=== PATIENT | female | born 1965 | race Caucasian/White ===

== ENCOUNTER 2019-12-25 15:37 | Outpatient (CLI) | payer OTHER, SELFPAY ==
--- NOTE | ~2019-12-25 | MR_ITS ---
EXAMINATION: MR ankle LT wo con DATE: 12/25/2019 16:45 INDICATION: Left-sided fasciitis. Peroneal tendinitis. TECHNIQUE: Magnetic resonance imaging (MRI) of the left ankle was performed without intravenous contr ast. Sequences included sagittal, coronal, and axial proton-density weighted fast spin echo without a nd with fat saturation. COMPARISON: None. FINDINGS: Medial ankle ligaments: Deep and superficial deltoid ligaments as well as the spring ligament are normal. Lateral ankle ligaments: The anterior and posterior inferior tibiofibular ligaments are normal. The anterior talofibular, calc aneofibular and posterior talofibular ligaments are normal. Tendons: Achilles tendon is normal. The peroneus longus and brevis tendons are normal. The tibialis anterior a nd extensor hallucis longus and extensor digitorum longus tendons are normal. The tibialis posterior, flexor digitorum longus and flexor hallucis longus tendons are normal. Plantar fascia: Small plantar calcaneal spur. There is thickening and mild increased signal at the proximal plantar a poneurosis. There is minimal surrounding soft tissue edema. Findings would be consistent with mild ac quileute on chronic plantar fasciitis. Bones/other: Cuboid alis lesion with focal marrow edema at the cuboid along the groove of the peroneus longus te ndon. Marrow signal is otherwise normal. No fracture, osteochondral lesions or pathologic marrow repl acing process. Joint spaces are normal. No cortical erosions. Sinus Tarsi and tarsal tunnel are unrem arkable. Fluid: Physiologic amount fluid in the joint spaces and tendon sheath. No abnormal fluid collections. IMPRESSION: 1. Mild acute on chronic plantar fasciitis. 2. Likely cuboid alis lesion with reactive marrow edema along the groove of the peroneus longus ten don which appears otherwise normal without tendinopathy or tenosynovitis. Reviewed, dictated and finalized at location A. IMPRESSION: 1. Mild acute on chronic plantar fasciitis. 2. Likely cuboid alis lesion with reactive marrow edema along the groove of t he peroneus longus tendon which appears otherwise normal without tendinopathy o r tenosynovitis.
== END 2019-12-25 15:38 | disposition home or self-care (01) ==
PROVIDERS: Visit Provider Podiatrist Foot & Ankle Surgery
DX: M72.2 Plantar fascial fibromatosis (principal)
CPT/HCPCS: 73721

== ENCOUNTER 2023-02-12 12:09 | Emergency (ER) | payer OTHER, SELFPAY ==
[2023-02-12 12:21] VITALS: BP 131/92; PULSE 83; RESP 16; TEMP 36.4; O2SAT 98
--- NOTE | 2023-02-12 12:48 | ED.GENADULT ---
HPI - General Adult General Chief complaint: Skin/Abscess/Foreign Body Stated complaint: Shingles Source: patient Mode of arrival: ambulatory Limitations: no limitations History of Present Illness HPI narrative: Patient presents for evaluation with concern she may have shingles. She was diagnosed with shingles about one month ago and completed valtrex and also received a script for elavil. She did not take many doses of elavil as she could not notice much of a difference in his symptoms on medication. During her recent episode of shingles, she had lesions to her buttock and left upper leg. Approximately 5 days ago she felt what she thought to be a second episode of shingles starting again. Symptoms were slightly above where she had symptoms during her last episode. She states she has started visualizing areas of erythema to her left buttock over last 48 hours. She is leaving town for vacation and wanted to ensure she had appropriate therapy as she would not be close to medical provider while out of town. She states she is immunosuppressed due to history of colon cancer s/p colon resection. Related Data Home Medications Medication Instructions Recorded Confirmed clonazepam 0.5 mg tablet 0.5 mg PO DAILY 02/12/23 02/12/23 sertraline 50 mg tablet 50 mg PO DAILY 02/12/23 02/12/23 Allergies Allergy/AdvReac Type Severity Reaction Status Date / Time No Known Allergies Allergy Mild Verified 02/12/23 12:41 Review of Systems Review of Systems: CONSTITUTIONAL: Denies fever, chills, or sweats. EYES: Denies visual changes, redness, or discharge. ENT: Denies rhinorrhea, congestion, sore throat, or otalgia. CARDIOVASCULAR: Denies chest pain, palpitations, or edema. RESPIRATORY: Denies cough or dyspnea. GASTROINTESTINAL: Denies abdominal pain, nausea, vomiting, or diarrhea. GENITOURINARY: Denies dysuria or hematuria. SKIN: Reports erythema to left buttock MUSCULOSKELETAL: Denies back pain, joint pain, or myalgia. NEUROLOGIC: Reports left upper leg. Denies headache, numbness, dizziness, or weakness. PSYCHIATRIC: Denies anxiety or depression. [facility] Past Medical History Medical History History of colon cancer Surgical History Surgical History History of colon resection Family History Family History Father Family history of mental disorder Mother Hypertension Other Cerebrovascular accident Family history of arthritis Family history of cardiovascular disease Family history of thyroid disease Social History Social History Smoking status: Never smoker Alcohol intake: never Living arrangements: with family Gender identity (if verbalized by the patient): Female Spiritual care concerns: No Exam Narrative: GENERAL: Well-appearing, well-nourished, and in no acute distress. HEAD: Normocephalic, atraumatic. EYES: PERRLA and EOMI. ENT: Nares clear, no rhinorrhea or epistaxis. Mucous membranes moist. Oropharynx without tonsillar hypertrophy exudate or other lesions. Bilateral TMs pearly diaz nonbulging NECK: Supple. No adenopathy or masses. No carotid bruits or JVD CHEST: Clear to auscultation. No respiratory distress. No wheezes rales or rhonchi HEART: Regular rate and rhythm. No murmur heard. Normal peripheral pulses. ABDOMEN: Soft, nontender, nondistended, normal active bowel sounds. EXTREMITIES: Normal range of motion. No edema. SKIN: There is mild erythema noted in left buttock. NEURO: No focal deficits. Alert and oriented x3. PSYCH: Normal mood and affect. Course Course Emergency Course: this is a 57-year-old female who presented for evaluation of what she believes to be the start of shingles after recent episode of such. I think that this is a pos
== END 2023-02-12 12:50 | disposition home or self-care (01) ==
PROVIDERS: Emergency Provider Nurse Practitioner; PCP Physician Assistant
DX: B02.9 Zoster without complications (principal); Z85.038 Personal history of other malignant neoplasm of large intestine
CPT/HCPCS: 99203; G0463